=== PATIENT | male | born 1945 | race Caucasian/White ===

== ENCOUNTER → 2023-09-13 07:34 | Outpatient (REF) | payer MEDICARE, OTHER, SELFPAY | LOC: RAD 07:34 | PROVIDERS: ATTENDING PHYSICIAN Surgery Vascular Surgery; FAMILY PHYSICIAN Internal Medicine | DX: I73.9 Peripheral vascular disease, unspecified (principal) | CPT/HCPCS: 93922; 93925 ==

== ENCOUNTER → 2023-11-14 06:37 | Outpatient (REF) | payer MEDICARE, OTHER, SELFPAY | LOC: RCS 06:37 | PROVIDERS: ATTENDING PHYSICIAN Internal Medicine Cardiovascular Disease; FAMILY PHYSICIAN Internal Medicine | DX: I20.9 Angina pectoris, unspecified (principal) | CPT/HCPCS: 78452; 93017; A9500 ==

== ENCOUNTER → 2024-03-20 07:27 | Outpatient (REF) | payer MEDICARE, OTHER, SELFPAY ==
[2024-03-20 09:16] LABS: % Basophils 1.1 % (0-2); % Eosinophils 10.2 % (0-6); % Immature Granulocytes 0.2 % (0-0.5); % Lymphocytes 29.8 % (20.5-51.1); % Monocytes 9.3 % (1.7-9.3); % Neutrophils 49.4 % (42.2-75.2); Absolute Basophils 0.1 10^3/uL (0-0.2); Absolute Eosinophils 0.6 10^3/uL (0-0.7); Absolute Lymphocytes 1.9 10^3/uL (1.2-3.4); Absolute Monocytes 0.6 10^3/uL (0.1-0.6); Absolute Neutrophils 3.1 10^3/uL (1.4-6.5); Hematocrit 43.6 % (39.0-52.0); Hemoglobin 14.2 g/dL (13.0-18.0); Mean Corp Hgb Conc. 32.6 g/dL (33.0-37.0); Mean Corpuscular Hgb 28.5 pg (27.0-31.0); Mean Corpuscular Volume 87.4 fL (80.0-94.0); Mean Platelet Volume 9.1 fL (7.4-10.4); Nucleated Red Blood Cells % 0 % (-); Platelet Count 205 10^3/uL (130-400); Red Blood Cell Count 4.99 10^6/uL (4.70-6.10); White Blood Cell Count 6.3 10^3/uL (4.8-10.8)
[2024-03-20 10:08] LABS: ALT (SGPT) 36 U/L (0-50); AST (SGOT) 37 U/L (17-59); Albumin 4.4 g/dl (3.5-5.0); Alkaline Phosphatase 65 U/L (38-126); Blood Urea Nitrogen 15 mg/dl (9-20); Calcium 9.5 mg/dl (8.4-10.2); Carbon Dioxide 26 mmol/L (22-30); Chloride 105 mmol/L (98-107); Glucose 102 mg/dl (70-99); HDL Cholesterol 64 mg/dl; LDL Cholesterol, Calculated 58 mg/dl; Sodium 143 mmol/L (135-145); Total Bilirubin 0.6 mg/dl (0.2-1.3); Total Cholesterol 137 mg/dl (50-199); Triglyceride 77 mg/dl (10-149); Very Low Density Lipoprotein 15 mg/dl (0-30); eGFR > 60.00
== END ==
LOC: HWLAB 07:27
PROVIDERS: ATTENDING PHYSICIAN Internal Medicine Cardiovascular Disease; FAMILY PHYSICIAN Internal Medicine
DX: I25.10 Atherosclerotic heart disease of native coronary artery without angina pectoris (principal); E78.5 Hyperlipidemia, unspecified; I10 Essential (primary) hypertension
CPT/HCPCS: 36415; 80053; 80061; 83735; 85025

== ENCOUNTER 2024-05-30 07:39 | Day surgery (SDC) | payer MEDICARE, OTHER, SELFPAY ==
[2024-05-30] VITALS (10 sets, daily range): BP systolic 139–176; BP diastolic 70–96; BMI 27.4
[2024-05-30 08:27] LABS: Hemoglobin 14.2 g/dL (13.0-18.0); Mean Corp Hgb Conc. 32.3 g/dL (33.0-37.0); Mean Corpuscular Hgb 27.8 pg (27.0-31.0); Mean Corpuscular Volume 86.1 fL (80.0-94.0); Mean Platelet Volume 9.1 fL (7.4-10.4); Platelet Count 233 10^3/uL (130-400); Red Blood Cell Count 5.11 10^6/uL (4.70-6.10); Red Cell Dist. Width 14.2 % (11.5-14.5); White Blood Cell Count 9.7 10^3/uL (4.8-10.8)
[2024-05-30 08:45] LABS: ALT (SGPT) 31 U/L (0-50); AST (SGOT) 30 U/L (17-59); Albumin 4.7 g/dl (3.5-5.0); Alkaline Phosphatase 61 U/L (38-126); Blood Urea Nitrogen 26 mg/dl (9-20); Calcium 10.4 mg/dl (8.4-10.2); Carbon Dioxide 22 mmol/L (22-30); Chloride 105 mmol/L (98-107); Estimated Creatinine Clearance 86 ml/min; Glucose 141 mg/dl (70-99); Potassium 4.6 mmol/L (3.5-5.1); Sodium 139 mmol/L (135-145); Total Bilirubin 0.6 mg/dl (0.2-1.3); Total Protein 7.5 g/dl (6.3-8.2); eGFR > 60.00
[2024-05-30] MEDS: NSS 275 ML IV (08:47)
[2024-05-30 11:52] LABS: ACT-LR - POC 279 Seconds (116-155)
[2024-05-30 12:19] LABS: ACT-LR - POC > 397 Seconds (116-155)
[2024-05-30 12:20] LABS: ACT-LR - POC 260 Seconds (116-155)
--- NOTE | 2024-05-30 13:19 | ITS.CL.CATH ---
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
Cardiac Catheterization
Procedure Report:
LEFT HEART CATHETERIZATION AND CORONARY INTERVENTION
Date of Procedure: May 30, 2024
Referring: Dr. Erika Segovia
PROCEDURES:
1. IV Contrast Allergy: PRETREATED
2. Left heart catheterization with coronary angiography
3. Selective saphenous vein graft and AURELIO angiography. The origin of the SVG was cannulated with an AL-1 diagnostic catheter and the SHEPARD was cannulated with an AURELIO catheter
INDICATION: This is a 78-year-old gentleman with a complex vascular history and and history of coronary artery disease. In May 2019 he underwent balloon angioplasty of the left common femoral artery via a right common femoral access. Arterial
access was in the distal external iliac artery on the right and postprocedure he developed a pseudoaneurysm requiring surgical repair with endarterectomy and patch repair on 06/30/2019. On 07/03/2019 a right groin seroma developed and on 08/05/2019
the surgical access site was noted to be infected and required extra-anatomic bypass with a right external iliac to right SFA bypass and sartorius flap.
In August 2020 he was referred for repeat coronary angiography via left radial approach. He was noted to have thrombus in the left main which embolized distally during contrast injections of the left main. The saphenous vein graft-OM could not be
selectively cannulated in spite of using multiple different catheters and guide catheters. Refer to the catheterization report. His [place] right coronary artery was open and the SHEPARD to the LAD was widely patent. He was treated medically and has
done well but developed exertionally related chest tightness 6 to 12 months ago. He had an excellent exercise tolerance with a largely fixed apical defect on perfusion imaging. He was treated medically and continued to experience chest discomfort
in spite of ongoing titration of medical therapy. He now has experienced chest discomfort at rest and at lower levels of exertion. His symptoms typically take 3 to 5 minutes to resolve. He is now referred for repeat coronary angiography
ACCESS: Right radial arterial access was obtained on several occasions with ultrasound guidance. The guidewire could be advanced very proximally but could not advance distally and was never felt to be free. After multiple attempts the decision was
made to abandon right radial access and left radial access was obtained with ultrasound guidance and placement of a 6 Icelandic left radial sheath.
HEMODYNAMICS : (mmHg)
AO (s/d) : 162/80, 101
LV (s/d) : 166/17
LVEDP : 27
CORONARY ANGIOGRAPHY
Dominance: Right
LEFT MAIN: 100% occluded
LEFT ANTERIOR DESCENDING: The left main is occluded and the LAD fills via widely patent AURELIO graft
CIRCUMFLEX: The left main is occluded and the circumflex fills via a widely patent SVG-OM
RIGHT CORONARY ARTERY: The right coronary artery is a dominant vessel. There is a hazy calcified 90% mid RCA stenosis beyond the RV marginal branch. The mid to distal RCA has luminal irregularities but no focal obstructive stenosis. The PDA is
large and has minor irregularities. The posterolateral branch is small
GRAFT ANGIOGRAPHY:
1. SHEPARD-LAD: The SHEPARD graft to the mid LAD is widely patent. There is antegrade and retrograde filling of the LAD. Distally the LAD is a medium caliber vessel that is widely patent and reaches the apex of the anterior wall. The LAD fills
retrograde to a bifurcating diagonal branch.
2. SVG-OM: The saphenous vein graft to OM 2 is widely patent and was cannulated with an AL-1 catheter. There is antegrade and retrograde filling of the OM.
LEFT VENTRICULOGRAPHY: Not done
ANGIOPLASTY PROCEDURE DETAIL: Upon review of the diagnostic catheterization films the decision was made to proceed with percutaneous revascularization of the high-grade stenosis in the mid right coronary artery. Intravenous heparin was
administered. The patient is chronically treated with aspirin and clopidogrel. The origin of the RCA was cannulated with a 6 Icelandic JR4 guide catheter and a BMW guidewire fortunately crossed the stenosis in the mid RCA without a terrible degree of
difficulty. The wire was advanced into the distal vessel. The high-grade stenosis was crossed then predilated achieving good expansion with a 2.5 mm noncompliant balloon. The noncompliant balloon predilation was followed by placement of a 3.5 x
18 mm Xience stent that was implanted at nominal pressures then postdilated with a 3.75 mm noncompliant balloon between 14 and 20 gigi with a nice angiographic result
RADIATION SUMMARY: Fluoro Time (min): 19.8, Dose (mGy): 1232, DAP (Gy.cm2) : 91.2
Closure Device: TR band
CONCLUSION
1. Successful stenting of the mid right coronary artery with placement of a 3.5 x 18 mm Xience stent that was postdilated to high pressures with a 3.75 mm noncompliant balloon
2. Patent SHEPARD-LAD and SVG-OM. 100% occlusion of the left main
RECOMMENDATIONS
1. Uninterrupted dual antiplatelet therapy for 6 to 12 months
Copy to: Dr. Erika Segovia
--- NOTE | 2024-05-30 16:47 | W.PN.UPDATE ---
Update Note
Progress Note Update
Pt seen post RCA PCI. Left radial cath site without ht/bleeding, oob ambulating. Post EKG NSR 60s w/rare PVC, no acute changes. Pt understands importance of uninterrupted DAPT w/asa, plavix post NANCY. Will decrease isosorbide to 30mg daily as before
and will eval pt for symptoms at followup appt in 2 weeks. Continue other meds as before. Cardiac rehab consulted. Home today if cath site/tele remain stable.
== END 2024-05-30 17:00 | disposition home or self-care (01) ==
LOC: CATH 07:39
PROVIDERS: ATTENDING PHYSICIAN Internal Medicine Interventional Cardiology; FAMILY PHYSICIAN Internal Medicine; OTHER PHYSICIAN Internal Medicine Cardiovascular Disease
DX: I25.10 Atherosclerotic heart disease of native coronary artery without angina pectoris (principal); T82.858A Stenosis of other vascular prosthetic devices, implants and grafts, initial encounter; Z79.02 Long term (current) use of antithrombotics/antiplatelets; Z95.1 Presence of aortocoronary bypass graft; R07.89 Other chest pain; Z79.82 Long term (current) use of aspirin; Z79.899 Other long term (current) drug therapy
CPT/HCPCS: 80053; 85027; 85347; 93005; 93459; C1725; C1769; C1874; C1894; C9600; Q9967

== ENCOUNTER → 2024-09-05 07:38 | Outpatient (REF) | payer MEDICARE, OTHER, SELFPAY | LOC: RAD 07:38 | PROVIDERS: ATTENDING PHYSICIAN Surgery Vascular Surgery; FAMILY PHYSICIAN Internal Medicine | DX: I73.9 Peripheral vascular disease, unspecified (principal) | CPT/HCPCS: 93922; 93925 ==

== ENCOUNTER → 2024-10-17 10:53 | Outpatient (REF) | payer MEDICARE, OTHER, SELFPAY ==
[2024-10-17 15:47] LABS: Blood Urea Nitrogen 19 mg/dl (9-20); Calcium 9.8 mg/dl (8.4-10.2); Carbon Dioxide 23 mmol/L (22-30); Chloride 111 mmol/L (98-107); Glucose 98 mg/dl (70-99); Potassium 4.6 mmol/L (3.5-5.1); Sodium 141 mmol/L (135-145); eGFR > 60.00
== END ==
LOC: HWLAB 10:53
PROVIDERS: ATTENDING PHYSICIAN Surgery Vascular Surgery; FAMILY PHYSICIAN Internal Medicine
DX: I73.9 Peripheral vascular disease, unspecified (principal)
CPT/HCPCS: 36415; 80048

== ENCOUNTER → 2025-01-12 08:18 | Outpatient (REF) | payer MEDICARE, OTHER, SELFPAY | LOC: RAD 08:18 | PROVIDERS: ATTENDING PHYSICIAN Internal Medicine Cardiovascular Disease; FAMILY PHYSICIAN Internal Medicine | DX: I65.23 Occlusion and stenosis of bilateral carotid arteries (principal) | CPT/HCPCS: 93880 ==

== ENCOUNTER → 2025-03-26 06:16 | Outpatient (REF) | payer MEDICARE, OTHER, SELFPAY ==
[2025-03-26 10:29] LABS: Hematocrit 41.2 % (39.0-52.0); Hemoglobin 12.9 g/dL (13.0-18.0); Mean Corp Hgb Conc. 31.3 g/dL (33.0-37.0); Mean Corpuscular Volume 87.1 fL (80.0-94.0); Nucleated Red Blood Cells % 0 % (-); Platelet Count 242 10^3/uL (130-400); Red Cell Dist. Width 15.1 % (11.5-14.5)
[2025-03-26 11:27] LABS: PSA, Total - Screen 17.20 ng/ml (0.0-4.0)
[2025-03-26 12:15] LABS: ALT (SGPT) 26 U/L (0-50); AST (SGOT) 25 U/L (17-59); Albumin 3.9 g/dl (3.5-5.0); Alkaline Phosphatase 64 U/L (38-126); Blood Urea Nitrogen 15 mg/dl (9-20); Calcium 9.3 mg/dl (8.4-10.2); Carbon Dioxide 23 mmol/L (22-30); Chloride 110 mmol/L (98-107); Glucose 107 mg/dl (70-99); HDL Cholesterol 54 mg/dl; LDL Cholesterol, Calculated 51 mg/dl; Potassium 4.1 mmol/L (3.5-5.1); Sodium 141 mmol/L (135-145); Total Protein 6.7 g/dl (6.3-8.2); Very Low Density Lipoprotein 13 mg/dl (0-30); eGFR > 60.00
== END ==
LOC: HWLAB 06:16
PROVIDERS: ATTENDING PHYSICIAN Internal Medicine Cardiovascular Disease; FAMILY PHYSICIAN Internal Medicine
DX: I25.10 Atherosclerotic heart disease of native coronary artery without angina pectoris (principal); E78.5 Hyperlipidemia, unspecified; Z12.5 Encounter for screening for malignant neoplasm of prostate
CPT/HCPCS: 36415; 80053; 80061; 84443; 85025; G0103

== ENCOUNTER → 2025-04-24 06:40 | Outpatient (REF) | payer MEDICARE, OTHER, SELFPAY | LOC: REG 06:40 | PROVIDERS: ATTENDING PHYSICIAN Urology; FAMILY PHYSICIAN Internal Medicine | DX: R97.20 Elevated prostate specific antigen [PSA] (principal) | CPT/HCPCS: 36415; 84153; 84154 ==

== ENCOUNTER → 2025-05-05 14:26 | Outpatient (REF) | payer MEDICARE, OTHER, SELFPAY | LOC: CLAB 14:26 | PROVIDERS: ATTENDING PHYSICIAN Urology | DX: R97.20 Elevated prostate specific antigen [PSA] (principal) | CPT/HCPCS: 88305 ==